=== PATIENT | male | born 1945 | race Caucasian/White ===

== ENCOUNTER → 2018-02-21 | Outpatient (CLI) | payer MEDICARE ==
[~2018-02-21] MED LIST: AMLO5TAB7 PO; ASPI-555 PO; BENA20TA10 PO; FISH1CAP49 PO; METO50TA18 PO; ROSU20TA PO; TERA5CAP4 PO; UBID100C45 PO
== END | disposition home or self-care (01) ==
LOC: SHCH 15:44
PROVIDERS: ATTEND Internal Medicine Cardiovascular Disease
DX: I08.0 Rheumatic disorders of both mitral and aortic valves (principal); Z72.89 Other problems related to lifestyle
CPT/HCPCS: 93306

== ENCOUNTER → 2018-02-27 | Outpatient (CLI) | payer MEDICARE ==
[~2018-02-27] VITALS: Ht 190.5 cm; Wt 102.1 kg
[~2018-02-27] MED LIST changes: -AMLO5TAB7 PO; +AMLO5TAB9 PO; +REGADENOSON 0.4 MG/5 ML PF SYG IVP SCH
== END | disposition home or self-care (01) ==
LOC: SHCH 08:30
PROVIDERS: ATTEND Internal Medicine Cardiovascular Disease
DX: R00.1 Bradycardia, unspecified (principal); Z72.89 Other problems related to lifestyle; I51.7 Cardiomegaly
CPT/HCPCS: 78452; 93017; 96374; A9500 ×2; J2785

== ENCOUNTER 2018-04-25 05:56 | Day surgery (SDC) | payer MEDICARE ==
[2018-04-21 11:33] LABS: APPEARANCE,URINE Clear (CLEAR); BILIRUBIN,URINE Negative (NEGATIVE); COLOR,URINE Yellow (YELLOW); CREATININE 1.2 mg/dL (0.5-1.5); GLUCOSE, URINE (UA) Negative (NEGATIVE); KETONES,URINE Negative (NEGATIVE); LEUKOCYTE ESTERASE ,URINE Negative (NEGATIVE); NITRATE,URINE Negative (NEGATIVE); OCCULT BLOOD,URINE Negative (NEGATIVE); POTASSIUM 4.5 mmol/L (3.5-5.1); PROTEIN,URINE Negative (NEGATIVE)
[2018-04-21 11:58] VITALS: BP 125/65
[2018-04-21 11:58] LABS: BASOPHILS % (AUTO) 0.7 % (0.0-5.0); EOSINOPHILS % (AUTO) 4.1 % (0.0-8.0); HEMATOCRIT 40.5 % (42-54); LYMPHOCYTES % (AUTO) 21.3 % (21.0-51.0); MEAN CORPUSCULAR HEMOGLOBIN 31.2 pg (27.0-33.0); MEAN CORPUSCULAR VOLUME 94.3 fL (79-99); MONOCYTES % (AUTO) 7.6 % (3.0-13.0); NEUTROPHILS % (AUTO) 66.3 % (40.0-77.0); NUCLEATED RED BLOOD CELLS 0.1 % (0.0-0.19); PLATELET COUNT (AUTO) 196 K/uL (130-400); RED BLOOD CELL COUNT(AUTO) 4.29 MIL/uL (4.50-6.20); RED CELL DISTRIBUTION WIDTH 13.7 % (11.0-15.5); WHITE BLOOD COUNT (AUTO) 5.5 K/uL (4.8-10.8)
[2018-04-21 12:02] LABS: INR 0.97 (0.85-1.15); PARTIAL THROMBOPLASTIN TIME 27.1 SEC (26.3-35.5); PROTHROMBIN TIME 10.2 SEC (9.6-11.6)
[2018-04-21 15:16] VITALS: BP 119/68
--- NOTE | 2018-04-24 12:38 | NUR ---
ABNORMAL LABS REPORTED LABS TO YAMILKA NICHOLS. CREATINE 1.2, BUN 20. NO NEW ORDERS
--- NOTE | 2018-04-24 14:17 | NUR ---
ALLERGIES REPORTED SHRIMP ALLERGY TO SIMONE, PA. ORDERS TO PREMEDICATE WITH BENADRYL 25MG IV AND SOLU-MEDRIL 125MG IV SNOW RANGER TO ASSOCIATE DRAFTER
[~2018-04-25] VITALS: Ht 188 cm; Wt 105.9 kg
[2018-04-25] VITALS (12 sets, daily range): BP systolic 115–138; BP diastolic 64–71
[~2018-04-25 05:56] MED LIST changes: -AMLO5TAB9 PO; -BENA20TA10 PO; +BUDE10.2 IH; +DIFL5DRO OS; -FISH1CAP49 PO; +LOSA25TA41 PO; +METF-444 PO; +METO25TA6 PO; -METO50TA18 PO; +MOXI3DRO12 OS; +NATURAL TEARS OD; +OMEP40CA37 PO; +PRAV40TA3 PO; +RANO500T3 PO; -REGADENOSON 0.4 MG/5 ML PF SYG IVP SCH; -ROSU20TA PO; +SODIUM CHLORIDE 0.9% 500ML 500 ML IV SCH; -TERA5CAP4 PO; -UBID100C45 PO
[2018-04-25] MEDS ORDERED: METHYLPREDNISOLONE SOD SUCC 125MG/2ML VIAL IVP SCH (06:00)
[2018-04-25] MEDS ORDERED: DiphenhydrAMINE HCL 50 MG/ML VIAL IV SCH (06:00)
[2018-04-25] MEDS ORDERED: SODIUM CHLORIDE 0.9% 1000ML 1,000 ML IV ONE (06:30)
[2018-04-25] MEDS ORDERED: ROSU40TA20 PO (07:03)
[2018-04-25] MEDS ORDERED: METO100T14 PO (07:03)
[2018-04-25] MEDS ORDERED: AMLO10TA7 PO (07:03)
[2018-04-25] MEDS ORDERED: OMEG100033 PO (07:03)
[2018-04-25] MEDS ORDERED: TERA5CAP4 PO (07:03)
[2018-04-25] MEDS ORDERED: UBID100C45 PO (07:03)
[2018-04-25] MEDS ORDERED: NITR0.4T50 SL (07:03)
[2018-04-25] MEDS ORDERED: BENA20TA10 PO (07:03)
[2018-04-25] MEDS ORDERED: LIDOCAINE HCL-MPF 2% 5ML VIAL ONE (08:48)
[2018-04-25] MEDS ORDERED: SODIUM BICARB 50MEQ 50ML VIAL ONE (08:48)
[2018-04-25] MEDS ORDERED: HEPARIN SODIUM 1000UNIT/ML 10ML VIAL ONE (08:49)
[2018-04-25] MEDS ORDERED: NITROGLYCERIN 5 MG/ML 10 ML VIAL IV ONE (08:49)
[2018-04-25] MEDS ORDERED: IOHEXOL-350 50ML VIAL IV ONE (08:49)
[2018-04-25] MEDS ORDERED: IOHEXOL 350 MG/ML 100ML INFUS..BTL IV ONE (08:51)
[2018-04-25] MEDS ORDERED: MIDAZOLAM HCL 1 MG/ML 2ML VIAL ONE (09:27)
[2018-04-25] MEDS ORDERED: MEPERIDINE-PF 25 MG/ML SYG ONE (09:27)
[2018-04-25] MEDS ORDERED: IOHEXOL-350 75 ML VIAL IV ONE (09:54)
[2018-04-25] MEDS ORDERED: SODIUM CHLORIDE 0.9% 1000ML 1,000 ML IV SCH (10:14)
[2018-04-25] MEDS ORDERED: ACETAMINOPHEN-CODEINE 300/30MG TAB PO PRN ×2 (10:15)
--- NOTE | 2018-04-25 13:23 | NUR ---
GAVE REPORT TO HARSH GONZALEZ NO CONCERNS VOICED.
== END 2018-04-25 16:30 | disposition home or self-care (01) ==
LOC: DAH 05:56
PROVIDERS: ATTEND Internal Medicine Cardiovascular Disease
DX: I25.708 Atherosclerosis of coronary artery bypass graft(s), unspecified, with other forms of angina pectoris (principal); Z98.890 Other specified postprocedural states; I10 Essential (primary) hypertension; Z95.5 Presence of coronary angioplasty implant and graft; E78.5 Hyperlipidemia, unspecified; Z79.899 Other long term (current) drug therapy; I25.5 Ischemic cardiomyopathy; Z79.01 Long term (current) use of anticoagulants
CPT/HCPCS: 36415; 71045; 80048; 81003; 85025; 85610; 85730; 93005; 93459; A4606; C1769; C1894; J1200; J1644; J2175; J2250; J2930; J3490 ×3; J7030; Q9965; Q9967 ×3; 99156; 99157

== ENCOUNTER 2018-06-07 07:58 | Observation (INO) | payer MEDICARE ==
[2018-06-05 10:00] VITALS: BP 108/62
[2018-06-05 10:06] LABS: BASOPHILS % (AUTO) 0.8 % (0.0-5.0); HEMATOCRIT 41.7 % (42-54); LYMPHOCYTES % (AUTO) 20.5 % (21.0-51.0); MEAN CORPUSCULAR HEMOGLOBIN 31.7 pg (27.0-33.0); MEAN CORPUSCULAR HGB CONC 33.8 g/dL (32.0-36.0); MEAN CORPUSCULAR VOLUME 93.6 fL (79-99); MONOCYTES % (AUTO) 6.7 % (3.0-13.0); PLATELET COUNT (AUTO) 208 K/uL (130-400); RED BLOOD CELL COUNT(AUTO) 4.46 MIL/uL (4.50-6.20); RED CELL DISTRIBUTION WIDTH 13.9 % (11.0-15.5); WHITE BLOOD COUNT (AUTO) 5.3 K/uL (4.8-10.8)
[2018-06-05 10:11] LABS: CREATININE 1.2 mg/dL (0.5-1.5); POTASSIUM 4.7 mmol/L (3.5-5.1)
--- NOTE | 2018-06-05 10:36 | NUR ---
ALLERGY INFORMED YAMILKA FRIAS OF PTS ALLERGY. NO ORDERS RECEIVED. PROCEED WITH PLANNED PROCEDURE.
[2018-06-05 10:57] LABS: INR 0.95 (0.85-1.15); PARTIAL THROMBOPLASTIN TIME 25.9 SEC (26.3-35.5)
[2018-06-07] VITALS (11 sets, daily range): BP systolic 98–139; BP diastolic 57–77
[~2018-06-07] VITALS: Ht 188 cm; Wt 106.0 kg
[~2018-06-07 07:58] MED LIST changes: +AMLO10TA7 PO; +BENA20TA10 PO; -BUDE10.2 IH; -DIFL5DRO OS; -LOSA25TA41 PO; -METF-444 PO; +METO100T14 PO; -METO25TA6 PO; -MOXI3DRO12 OS; -NATURAL TEARS OD; +OMEG100033 PO; -OMEP40CA37 PO; -PRAV40TA3 PO; -RANO500T3 PO; +ROSU20TA PO; -SODIUM CHLORIDE 0.9% 500ML 500 ML IV SCH; +TERA5CAP4 PO; +UBID100C45 PO
[2018-06-07] MEDS ORDERED: SODIUM CHLORIDE 0.9% 1000ML 1,000 ML IV SCH (08:00)
[2018-06-07] MEDS ORDERED: ASPI-1181 PO (08:46)
[2018-06-07] MEDS ORDERED: ROSU40TA20 PO (08:46)
[2018-06-07] MEDS ORDERED: AMLO5TAB9 PO (08:46)
[2018-06-07] MEDS ORDERED: METHYLPREDNISOLONE SOD SUCC 125MG/2ML VIAL ONE (12:17)
[2018-06-07] MEDS ORDERED: DiphenhydrAMINE HCL 50 MG/ML VIAL ONE (12:17)
[2018-06-07] MEDS: FAMOTIDINE/PF 20 MG/2 ML VIAL IV SCH ×3 (12:27→20:56)
[2018-06-07] MEDS: DiphenhydrAMINE HCL 50 MG/ML VIAL IV SCH (12:30)
[2018-06-07] MEDS: METHYLPREDNISOLONE SOD SUCC 125MG/2ML VIAL IVP SCH (12:30)
--- NOTE | 2018-06-07 12:43 | NUR ---
PROCEDURE PT TAKEN TO GANG WORKER FOR PROCEDURE. PT AWAKE AND ALERT, NO DISTRESS NOTED. SPOUSE AT BEDSIDE
[2018-06-07] MEDS ORDERED: MEPERIDINE-PF 25 MG/ML SYG ONE ×4 (12:58→13:36)
[2018-06-07] MEDS ORDERED: IODIXANOL 320 MG/ML 100 ML VIAL ONE (12:58)
[2018-06-07] MEDS ORDERED: BUPIVACAINE/PF 0.25% 30ML VIAL IJ ONE (12:58)
[2018-06-07] MEDS ORDERED: CEFAZOLIN SODIUM 1 GM VIAL ONE (12:58)
[2018-06-07] MEDS ORDERED: LIDOCAINE HCL 1% MDV 50ML VIAL ONE (13:00)
[2018-06-07] MEDS ORDERED: MIDAZOLAM HCL 1 MG/ML 2ML VIAL ONE ×4 (13:00→13:36)
[2018-06-07] MEDS ORDERED: OCTYL 2-CYANOACRYLATE 1 EACH TP ONE (14:38)
[2018-06-07] MEDS ORDERED: ACETAMINOPHEN 325 MG TAB PO PRN ×3 (15:15→20:30)
[2018-06-07] MEDS ORDERED: ACETAMINOPHEN-CODEINE 300/30MG TAB PO PRN (15:15)
--- NOTE | 2018-06-07 16:00 | NUR ---
ARRIVAL TO FLOOR ROOM 226. PT IS AAOX4 DENIES CP DENIES SOB DENIES NV NO COMPLAINTS. LEFT UPPER CHEST DRESSING CLEAN DRY AND INTACT. LEFT ARM SLING IN PLACE. NO COMPLAINTS. RESTING IN BED.
--- NOTE | 2018-06-07 18:33 | NUR ---
[facility]HE[facility] FOR [facility]ITAL[facility] AWARE OF PATIENT ADMISSION TO FLOOR PER DR MORALES ORDERS.
[2018-06-07] MEDS ORDERED: ONDANSETRON HCL 4 MG/2 ML VIAL IV PRN (20:30)
[2018-06-07] MEDS ORDERED: MORPHINE SULFATE 2 MG/ML 1ML SYG IV PRN (20:30)
[2018-06-07] MEDS: CEFAZOLIN SODIUM 1 GM VIAL IVP SCH (20:56)
[2018-06-07] MEDS: METOPROLOL TARTRATE 50 MG TAB PO SCH (20:57)
[2018-06-07] MEDS: AMLODIPINE BESYLATE 5 MG TAB PO SCH (20:57)
[2018-06-07] MEDS ORDERED: UBIDECARENONE 100 MG PO SCH (21:00)
[2018-06-07] MEDS ORDERED: BENAZEPRIL HCL 10 MG TABLET PO SCH (21:00)
[2018-06-07] MEDS ORDERED: ATORVASTATIN CALCIUM 40 MG TABLET PO SCH (21:00)
[2018-06-08 03:49] VITALS: BP 137/63
[2018-06-08 04:06] LABS: HEMATOCRIT 40.1 % (42-54); LYMPHOCYTES % (AUTO) 4.5 % (21.0-51.0); MEAN CORPUSCULAR HEMOGLOBIN 31.2 pg (27.0-33.0); MEAN CORPUSCULAR HGB CONC 33.5 g/dL (32.0-36.0); MEAN CORPUSCULAR VOLUME 93.3 fL (79-99); MONOCYTES % (AUTO) 1.6 % (3.0-13.0); NEUTROPHILS % (AUTO) 93.9 % (40.0-77.0); PLATELET COUNT (AUTO) 204 K/uL (130-400); RED BLOOD CELL COUNT(AUTO) 4.29 MIL/uL (4.50-6.20); RED CELL DISTRIBUTION WIDTH 13.7 % (11.0-15.5); WHITE BLOOD COUNT (AUTO) 9.4 K/uL (4.8-10.8)
[2018-06-08 04:27] LABS: ALBUMIN 3.5 g/dL (3.5-5.0); BILIRUBIN,TOTAL 0.4 mg/dL (0.2-1.0); CREATININE 1.3 mg/dL (0.5-1.5); POTASSIUM 4.3 mmol/L (3.5-5.1); TOTAL PROTEIN, SERUM 6.9 g/dL (6.0-8.3)
[2018-06-08] MEDS: CEFAZOLIN SODIUM 1 GM VIAL IVP SCH (05:45)
[2018-06-08] MEDS: AMLODIPINE BESYLATE 5 MG TAB PO SCH (07:54)
[2018-06-08] MEDS: METOPROLOL TARTRATE 50 MG TAB PO SCH (07:55)
[2018-06-08] MEDS: FAMOTIDINE/PF 20 MG/2 ML VIAL IV SCH (07:56)
[2018-06-08 08:00] VITALS: BP 120/62
--- NOTE | 2018-06-08 08:00 | NUR ---
ASSESSMENT PT IS AAOX4 DENIES CP DENIES SOB DENIES NV NO COMPLAINTS. LEFT UPPER CHEST DRESSING CLEAN DRY AND INTACT. CALL LIGHT WITHIN REACH.
[2018-06-08] MEDS ORDERED: TERAZOSIN HCL 5 MG CAPSULE PO SCH (09:00)
[2018-06-08] MEDS ORDERED: FISH OIL 1000 MG/CAP PO SCH (09:00)
[2018-06-08] MEDS ORDERED: ASPIRIN 81 MG EC TAB PO SCH (09:00)
[2018-06-08] MEDS: DiphenhydrAMINE HCL 50 MG/ML VIAL IV SCH (11:38)
[2018-06-08] MEDS: METHYLPREDNISOLONE SOD SUCC 125MG/2ML VIAL IVP SCH (11:38)
[2018-06-08 12:00] VITALS: BP 120/57
--- NOTE | 2018-06-08 13:49 | NUR ---
DISCHARGE TO HOME PT AND FAMILY VERBALIZE DC INSTRUCTIONS UNDERSTANDING AGREE TO TAKE MEDICATIONS ORDERED, AGREE TO FOLLOW UP WITH DR MORALES AND PRIMARY MD. PIV REMOVED, CATH TIP INTACT, TELE PACK REMOVED. ALL QUESTIONS ANSWERED ,ALL BELONGINGS TAKEN, DOWN VIA WC TO VEHICLE.
== END 2018-06-08 13:44 | disposition home or self-care (01) ==
LOC: DAH 07:58 → DAHIP 07:59 → 2DH 16:14
PROVIDERS: ADMIT Internal Medicine; ATTEND Internal Medicine
DX: I25.5 Ischemic cardiomyopathy (principal); E78.5 Hyperlipidemia, unspecified; I25.10 Atherosclerotic heart disease of native coronary artery without angina pectoris; J44.9 Chronic obstructive pulmonary disease, unspecified; I11.0 Hypertensive heart disease with heart failure; I50.42 Chronic combined systolic (congestive) and diastolic (congestive) heart failure; Z86.79 Personal history of other diseases of the circulatory system; Z95.0 Presence of cardiac pacemaker; Z95.1 Presence of aortocoronary bypass graft; Z82.0 Family history of epilepsy and other diseases of the nervous system; Z82.3 Family history of stroke; Z82.49 Family history of ischemic heart disease and other diseases of the circulatory system; Z82.5 Family history of asthma and other chronic lower respiratory diseases; Z83.3 Family history of diabetes mellitus
CPT/HCPCS: 33225; 33264; 36415 ×2; 71046; 80048; 80053; 85025 ×2; 85610; 85730; 93005; 96374; 96375; 96376 ×2; A4218; A4606; C1769 ×2; C1882; C1900; G0378 ×30; J0690 ×3; J1200; J2175 ×3; J2250 ×3; J2930; J3490 ×5; J7030; Q9967; 99156; 99157

== ENCOUNTER → 2019-03-13 | Outpatient (CLI) | payer MEDICARE ==
[~2019-03-13] MED LIST changes: -AMLO10TA7 PO; +AMLO5TAB9 PO; +ASPI-1181 PO; -ASPI-555 PO; -ROSU20TA PO; +ROSU40TA21 PO
== END | disposition home or self-care (01) ==
LOC: SHCH 07:38
PROVIDERS: ATTEND Internal Medicine Cardiovascular Disease
DX: I65.23 Occlusion and stenosis of bilateral carotid arteries (principal); I71.4 Abdominal aortic aneurysm, without rupture
CPT/HCPCS: 93880; 93978

== ENCOUNTER 2024-02-10 05:36 | Day surgery (SDC) | payer MEDICARE ==
[2024-02-08 14:07] LABS: BASOPHILS # (AUTO) 0.02 K/uL (0.00-0.20); BASOPHILS % (AUTO) 0.4 % (0.0-5.0); EOSINOPHILS # (AUTO) 0.23 K/uL (0.00-0.70); EOSINOPHILS % (AUTO) 4.6 % (0.0-8.0); HEMATOCRIT 36.5 % (42-54); IMMATURE GRANULOCYTE ABSOLUTE 0.02 K/uL (0-1); LYMPHOCYTES # (AUTO) 1.1 K/uL (1.0-4.8); LYMPHOCYTES % (AUTO) 22.2 % (21.0-51.0); MEAN CORPUSCULAR HEMOGLOBIN 31.1 pg (27.0-33.0); MEAN CORPUSCULAR HGB CONC 33.4 g/dL (32.0-36.0); MEAN CORPUSCULAR VOLUME 93.1 fL (79-99); MONOCYTES # (AUTO) 0.6 K/uL (0.1-1.0); MONOCYTES % (AUTO) 10.9 % (3.0-13.0); NEUTROPHILS # (AUTO) 3.1 K/uL (1.8-7.7); NEUTROPHILS % (AUTO) 61.5 % (40.0-77.0); PLATELET COUNT (AUTO) 193 K/uL (130-400); RED BLOOD CELL COUNT(AUTO) 3.92 MIL/uL (4.50-6.20); RED CELL DISTRIBUTION WIDTH 13.8 % (11.0-15.5); WHITE BLOOD COUNT (AUTO) 5.1 K/uL (4.8-10.8)
[2024-02-08 14:19] LABS: INR 1.02 (0.85-1.15)
[2024-02-08 14:21] LABS: PARTIAL THROMBOPLASTIN TIME 26.8 SEC (26.3-35.5)
[2024-02-08 14:42] VITALS: BP 149/71; PULSE 68; RESP 17; TEMP 97.6
[2024-02-08 15:11] LABS: CREATININE 1.1 mg/dL (0.5-1.3); POTASSIUM 4.3 mmol/L (3.5-5.1)
--- NOTE | 2024-02-08 15:38 | EKG ---
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
[2024-02-10] VITALS (11 sets, daily range): BP systolic 127–142; BP diastolic 57–82; PULSE 68–73; RESP 10–17; TEMP 97.1–97.8
[~2024-02-10] VITALS: Ht 185.4 cm; Wt 103.4 kg
[~2024-02-10 05:36] MED LIST changes: +AMLO-257 PO; -AMLO5TAB9 PO; -ASPI-1181 PO; +ASPI-1443 PO; -BENA20TA10 PO; +BETA1TAB20 PO; +HYDR25TA67 PO; +LOSA50TA64 PO; -OMEG100033 PO; -ROSU40TA21 PO; +ROSU40TA88 PO; +TERA10CA4 PO; -TERA5CAP4 PO; -UBID100C45 PO; +albuterol IH; +coq10 PO; +spiriva IH; +wixela IH
[2024-02-10] MEDS: 0.9%NACL 1000ML 1,000 ML IV ONE (06:37)
[2024-02-10] MEDS ORDERED: LIDOCAINE HCL 1% MDV 50ML VIAL ONE (07:12)
[2024-02-10] MEDS ORDERED: BUPIvacaine/PF 0.25% 30ML VIAL IJ ONE (07:12)
[2024-02-10] MEDS ORDERED: ceFAZolin SODIUM 1 GM VIAL ONE (07:12)
[2024-02-10] MEDS ORDERED: MEPERIDINE-PF 25 MG/ML SYG ONE ×3 (07:30→08:03)
[2024-02-10] MEDS ORDERED: MIDAZOLAM HCL 1 MG/ML 2ML VIAL ONE ×3 (07:31→08:03)
[2024-02-10] MEDS ORDERED: acetaMINOPHEN WITH coDEINE 1 TAB TAB PO PRN ×2 (09:00)
[2024-02-10] MEDS: ceFAZolin SODIUM 2 GM VIAL IVPB ONE (14:11)
--- NOTE | 2024-02-12 07:25 | EKG ---
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
== END 2024-02-10 14:53 | disposition home or self-care (01) ==
LOC: DAH 05:36
PROVIDERS: ATTEND Internal Medicine Cardiovascular Disease
DX: Z45.02 Encounter for adjustment and management of automatic implantable cardiac defibrillator (principal); I25.5 Ischemic cardiomyopathy; I44.2 Atrioventricular block, complete; I25.10 Atherosclerotic heart disease of native coronary artery without angina pectoris; I71.40 Abdominal aortic aneurysm, without rupture, unspecified; I11.0 Hypertensive heart disease with heart failure; I50.42 Chronic combined systolic (congestive) and diastolic (congestive) heart failure; Z88.8 Allergy status to other drugs, medicaments and biological substances; E78.5 Hyperlipidemia, unspecified; Z95.1 Presence of aortocoronary bypass graft; Z79.899 Other long term (current) drug therapy
CPT/HCPCS: 80048; 85025; 85610; 85730; 36415; 93005 ×2; 33264; C1882; J0690 ×2; J7030; J0665; J2250 ×3; J2175 ×3; J3490; A4215; A4222; A4221; A4663; A4216; A4606; A4223 ×3; 99156; 99157